=== PATIENT | female | born 2000 | race Caucasian/White ===

== ENCOUNTER 2021-09-05 10:02 | Emergency (ER) | payer BC ==
[2021-09-05] MEDS ORDERED: diphenhydrAMINE 50 MG/ML VIAL ONE (11:25)
[2021-09-05] MEDS ORDERED: Dexamethasone 10 MG/ML VIAL ONE (11:25)
== END 2021-09-05 12:05 | disposition home or self-care (01) ==
LOC: CSHERS 10:02
DX: H57.89 Other specified disorders of eye and adnexa (principal); T49.8X5A Adverse effect of other topical agents, initial encounter
CPT/HCPCS: 96372; 99283; J1100; J1200

== ENCOUNTER 2022-02-24 13:38 | Emergency (ER) | payer BC ==
[2022-02-24] MEDS ORDERED: Ondansetron PF 4 MG/2 ML Vial ONE (14:19)
[2022-02-24] MEDS ORDERED: HYDROcodone/Acetaminophen 5/325 mg Tablet ONE (14:56)
[2022-02-24 15:05] LABS: BHCG - Serum Negative (NEGATIVE); Pregs Control Background? CLEAR/WHITE (CLR/WHITE); Pregs Control Bar Appear? YES (CONTROL BAR)
[2022-02-24 15:06] LABS: Mean Corpuscular HGB CONC 34.6 g/dL (32.0-36.0); Mean Corpuscular Hemoglobin 31.1 pg (27.0-33.0); Mean Platelet Volume 10.8 fl (7.4-10.4); Platelet Count 295 10x3/uL (150-450); RBC Distribution Width 12.3 % (11.5-14.5); White Blood Cell (WBC) Count 9.7 10x3/uL (3.5-10.5)
[2022-02-24 15:21] LABS: ALT (SGPT) 16 U/L (8-55); AST (SGOT) 26 U/L (5-34); Albumin 4.2 g/dL (3.5-5.0); Alkaline Phosphatase 62 U/L (40-110); Anion Gap 18 mmol/L (10-20); BUN (Urea Nitrogen) 16 mg/dL (7.0-18.7); Bilirubin, Total 1.1 mg/dL (0.2-1.2); Calc. Creatinine Clearance 0 mL/min (70-130); Calcium 9.6 mg/dL (7.8-10.44); Carbon Dioxide 20 mmol/L (22-29); Chloride 102 mmol/L (98-107); Globulin 3.7 g/dL (2.4-3.5); Glucose 99 mg/dL (70-105); Potassium 4.5 mmol/L (3.5-5.1); Protein, Total 7.9 g/dL (6.0-8.3); Sodium 135 mmol/L (136-145)
[2022-02-24 15:34] LABS: Band 12 % (5-11); Monocytes 9 % (0-10)
[2022-02-24 15:35] LABS: Lymphocytes 4 % (21-51)
[2022-02-24 15:38] LABS: Neutrophil 75 % (42-75); Platelet Morphology Comment Appears Adequate; Toxic Granulation SLIGHT
[2022-02-24 15:39] LABS: MDiff Complete? YES; RBC Morphology Normal
== END 2022-02-24 16:50 | disposition home or self-care (01) ==
LOC: CSHERS 13:38
DX: K52.9 Noninfective gastroenteritis and colitis, unspecified (principal)
CPT/HCPCS: 80053; 84703; 85025; 96361; 96374; J2405